=== PATIENT | male | born 1995 | race Two or more races ===

== ENCOUNTER 2024-10-07 11:08 | Day surgery (SDC) | payer BC, OTHER ==
[~2024-10-07] VITALS: Ht 152.4 cm; Wt 99.8 kg
[2024-10-07 15:04] VITALS: O2SAT 99
[2024-10-07] MEDS ORDERED: fentaNYL CITRATE 100 MCG/2 ML VL ONE (15:08)
[2024-10-07] MEDS ORDERED: PROPOFOL 10 MG/ML 20 ML IV ONE (15:08)
[2024-10-07] MEDS: ceFAZolin 2 GM/D5W50ml 50 ML IV ONE (16:14)
[2024-10-07] MEDS: BUPIVACAINE 0.5% P/F INJ 10 ML VIAL ONE (16:30)
[2024-10-07 17:04] VITALS: TEMP 97.4
[2024-10-07] MEDS ORDERED: ONDANSETRON HCL 4 MG/2 ML VIAL IV ONE (17:15)
[2024-10-07] MEDS ORDERED: ACETAMINOPHEN IV 1000 MG/100ML (10MG/ML) IV PRN (17:15)
[2024-10-07] MEDS ORDERED: HYDROmorphone HCL 2 MG/ML VL/or syr IV PRN (17:15)
[2024-10-07 17:40] VITALS: BP 117/70; PULSE 61; RESP 15; O2SAT 99
--- NOTE | 2024-10-07 18:47 | DVHOP2 ---
Operative Report - 2 Report Details Date: 10/07/24 Preop Diagnosis: RIGHT VOLAR WRIST GANGLION CYST Postop Diagnosis: Right volar ganglion cyst Surgeon: Christy Anguiano MD Realtime Reporter: Kavitha Irvin Physician Realtime Reporter Anesthesiologist: Dr Parks Anesthesia: General Implant: None Consent: The patient was informed of the risks and benefits of the procedure. These include but are not limited to complications of anesthesia, postoperative infection, incomplete relief of symptoms, recurrence of symptoms, damage to blood vessels, nerves and tendons, deep venous thrombosis, pulmonary embolism and possible need for repeat surgery in the future. Complications: None Estimated Blood Loss: Less than 10 mL Indications for Surgery: The patient is a 21-year-old male who presented to the clinic with a history of wrist ganglion. Nonoperative and operative management options were discussed. Initially nonoperative management was recommended and he was placed under observation. However he continued to have significant pain. Volar ganglion cyst was noted. Nonoperative and operative management options were discussed. Surgery in the form of excision of the cyst was discussed with him. Benefits, risks and treatment alternatives were discussed. Specific complications of the surgery such as neurovascular injury, infection, arthrofibrosis, loss of limb or life were discussed. He decided to proceed with the surgical option. Name of Procedure Performed Right volar ganglion cyst excision Procedure Details Procedure Details: The patient was identified in the preoperative holding area and the surgical site was marked. The consent was verified. He was brought into the operating room and placed supine on the operating table. General anesthesia was administered. Intravenous antibiotics were given. The extremity was prepped and draped in the usual sterile manner. A time-out was called to confirm that the identity of the patient, the nature of surgery, the site of surgery, the availability of implants and x-rays if any and allergies to medications. Tourniquet was raised. A small horizontal incision was made over the site of ganglion cyst. The skin and the subcutaneous tissue were dissected the deep fascia was incised. The cyst was clearly identified. There was a venous bleeder right over the cyst and onto the periphery. These were coagulated. The cyst was now excised. This was coming from the volar aspect of the wrist joint. This was sent for pathology. Irrigation was given. The tourniquet was released. No excessive bleeding was noted. The capillary refill was less than 2 seconds. Hand was very well perfused. Condition Good Disposition Home CHRISTY ANGUIANO MD Oct 07, 2024 18:47
== END 2024-10-07 17:50 | disposition home or self-care (01) ==
LOC: SUR 11:08
PROVIDERS: ATTEND Orthopaedic Surgery Sports Medicine
DX: M67.431 Ganglion, right wrist (principal); M25.531 Pain in right wrist
CPT/HCPCS: 25111; J0690; J2704; J3010; J3490